=== PATIENT | female | born 1960 | race Caucasian/White ===

== ENCOUNTER 2021-02-13 08:25 | Inpatient (IN) | payer OTHER ==
[~2021-02-13] VITALS: Ht 160 cm; Wt 89.0 kg
--- NOTE | 2021-02-13 08:41 | NUR ---
PT IS IN ROOM #2B. DR DAUGHERTY EVALUATED THE PT.
[2021-02-13] MEDS ORDERED: NITROGLYCERIN 0.4 MG/TAB BOTTLE SL ONE ×2 (09:13→09:30)
[2021-02-13] MEDS ORDERED: ASPIRIN 81 MG TAB.CHEW ONE ×2 (09:13→09:15)
[2021-02-13 09:15] LABS: HEMATOCRIT 35.3 % (31.2-41.9); MEAN CORPUSCULAR HEMOGLOBIN 30.1 uug (24.7-32.8); MEAN CORPUSCULAR VOLUME 89.7 fL (75.5-95.3); PLATELET COUNT (AUTO) 315 K/uL (179-408)
[2021-02-13 09:34] LABS: CREATININE 0.8 mg/dL (0.6-1.3); POTASSIUM 3.9 mmol/L (3.5-5.1)
[2021-02-13 09:40] LABS: BILIRUBIN,TOTAL 0.2 mg/dL (0.2-1.0); TOTAL PROTEIN, SERUM 7.8 g/dL (6.4-8.2)
[2021-02-13] MEDS ORDERED: NITROGLYCERIN OINT 1 GM PACKET TP ONE ×2 (09:45→10:25)
[2021-02-13] MEDS ORDERED: ASPIRIN 81 MG TAB.CHEW PO ONE (09:45)
[2021-02-13] MEDS ORDERED: ENOXAPARIN SODIUM 40 MG/0.4 ML DISP.SYRIN SQ SCH (13:00)
[2021-02-13] MEDS ORDERED: ACETAMINOPHEN 325 MG TABLET PO PRN (13:00)
[2021-02-13] MEDS ORDERED: Z GUARD REMEDY PASTE 57 GM TUBE TOP PRN (13:00)
[2021-02-13] MEDS ORDERED: NITROGLYCERIN 0.4 MG/TAB BOTTLE SL PRN (13:00)
[2021-02-13] MEDS ORDERED: MAGNESIUM HYDROXIDE 30 ML LIQUID UDC PO PRN (13:00)
[2021-02-13] MEDS ORDERED: ONDANSETRON 4 MG/2 ML VIAL IV PRN (13:00)
--- NOTE | 2021-02-13 16:50 | NUR ---
ADMITTED VIA W/C, ACCOMPANIED BY NADEEN MCCOY RN. ORIENTED TO SURROUNDINGS. DENIES CHEST PAIN, SOB OR ANXIETY AT THIS TIME.
[2021-02-13 16:59] VITALS: BP 144/74
[2021-02-13] MEDS ORDERED: LORAZEPAM 2 MG/1 ML VIAL IM ONE (17:00)
--- NOTE | 2021-02-13 17:47 | NUR ---
REPORT WAS GIVEN TO OUTDOOR EDUCATION TEACHER. PT WAS TRANSFERED TO ROOM #306.
[2021-02-13 20:05] VITALS: BP 128/74
[2021-02-14 04:05] VITALS: BP 137/77
[2021-02-14 07:01] LABS: CREATININE 0.8 mg/dL (0.6-1.3); MAGNESIUM 2.3 mg/dL (1.8-2.4); PHOSPHOROUS 3.5 mg/dL (2.5-4.9); POTASSIUM 3.9 mmol/L (3.5-5.1)
[2021-02-14 07:07] LABS: HEMATOCRIT 34.1 % (31.2-41.9); MEAN CORPUSCULAR HEMOGLOBIN 30.2 uug (24.7-32.8); PLATELET COUNT (AUTO) 289 K/uL (179-408)
[2021-02-14] MEDS: ASPIRIN 81 MG TAB.CHEW PO SCH (08:39)
[2021-02-14] MEDS: ENOXAPARIN SODIUM 40 MG/0.4 ML DISP.SYRIN SQ SCH (08:40)
--- NOTE | 2021-02-14 10:00 | NUR ---
SEEN BY DR. MADRIGAL. ARRANGING FOR CARDIAC CTA IN AM.
[2021-02-14] MEDS ORDERED: ASPI81TA31 PO (11:24)
[2021-02-14] MEDS ORDERED: METO-356 PO (11:24)
[2021-02-14] MEDS ORDERED: ATOR20TA PO (11:24)
[2021-02-14] MEDS: METOPROLOL SUCCINATE XL 25 MG TAB.SR.24H PO SCH (11:44)
[2021-02-14] MEDS: HYDROCODONE/APAP 5-325MG TABLET PO PRN (11:45)
[2021-02-14 12:00] VITALS: BP 139/61
--- NOTE | 2021-02-14 14:30 | NUR ---
SHOWERED. FEELS MUCH BETTER. AMBULATING AD EDUARDO. DAUGHTER AWARE OF CTA.
[2021-02-14 16:29] VITALS: BP 99/36
[2021-02-14 20:10] VITALS: BP 124/77
[2021-02-14] MEDS ORDERED: ATORVASTATIN 20 MG TABLET PO SCH (21:00)
[2021-02-15] VITALS: BP 131/74
[2021-02-15 04:10] VITALS: BP 121/69
--- NOTE | 2021-02-15 07:20 | NUR ---
Patient went to CT of the chest in [facility] up by private ambulance via gurney in stable condition.
[2021-02-15] MEDS: HYDROCODONE/APAP 5-325MG TABLET PO PRN (10:23)
[2021-02-15 10:30] VITALS: BP 131/74
[2021-02-15] MEDS ORDERED: PANTOPRAZOLE SODIUM 40 MG VIAL IV SCH (10:30)
--- NOTE | 2021-02-15 10:33 | NUR ---
Pt returned to unit/room 306 at 1015 via gurney from private ambulance. Assessment done and giving am meds that were due while pt was away.
[2021-02-15] MEDS: ASPIRIN 81 MG TAB.CHEW PO SCH (10:34)
[2021-02-15] MEDS: ENOXAPARIN SODIUM 40 MG/0.4 ML DISP.SYRIN SQ SCH (10:35)
[2021-02-15] MEDS: METOPROLOL SUCCINATE XL 25 MG TAB.SR.24H PO SCH (10:51)
[2021-02-15 16:00] VITALS: BP 121/62
--- NOTE | 2021-02-15 16:44 | NUR ---
Pt discharged via private vehicle with son, IV removed prior to discharge. Discharge instructions reviewed with pt.
== END 2021-02-15 16:20 | disposition home or self-care (01) | DRG 201 ==
LOC: ER 08:25 → TELE3 16:10
PROVIDERS: ADMIT Nurse Practitioner Acute Care; ATTEND Internal Medicine
DX: I47.1 Supraventricular tachycardia (principal); E66.9 Obesity, unspecified; R07.89 Other chest pain; Z68.34 Body mass index [BMI] 34.0-34.9, adult; Z20.822 Contact with and (suspected) exposure to COVID-19; I10 Essential (primary) hypertension; E78.00 Pure hypercholesterolemia, unspecified
CPT/HCPCS: 36415; 70030-TC; 71045; 83735; 84100; 85025; 85610; 93005; 93307; A4663; C9113; G0378; J1650; J7030

== ENCOUNTER 2021-07-02 13:48 | Emergency (ER) | payer OTHER ==
[~2021-07-02] VITALS: Ht 160 cm; Wt 88.5 kg
[~2021-07-02 13:48] MED LIST: ASPI81TA31 PO; ATOR20TA PO; METO-356 PO
[2021-07-02] MEDS ORDERED: DIPH25TA62 PO (14:41)
[2021-07-02] MEDS ORDERED: PRED20TA PO (14:41)
[2021-07-02] MEDS ORDERED: predniSONE 20 MG TABLET PO ONE (14:45)
[2021-07-02] MEDS ORDERED: diphenhydrAMINE 50 MG CAPSULE PO ONE (14:45)
[2021-07-02] MEDS ORDERED: diphenhydrAMINE 50 MG CAPSULE ONE (14:52)
[2021-07-02] MEDS ORDERED: predniSONE 20 MG TABLET ONE (14:52)
[2021-07-02 14:59] VITALS: BP 148/90
--- NOTE | 2021-07-02 14:59 | NUR ---
Patient discharged to home in stable condition. Written and verbal after care instructions given. Patient verbalizes understanding of instructions. Stressed follow up or return to ER for worsening s/s.
== END 2021-07-02 15:00 | disposition home or self-care (01) ==
LOC: ER 13:48
DX: L50.9 Urticaria, unspecified (principal); Z86.16 Personal history of COVID-19; E78.5 Hyperlipidemia, unspecified; E11.9 Type 2 diabetes mellitus without complications; I25.10 Atherosclerotic heart disease of native coronary artery without angina pectoris; E78.00 Pure hypercholesterolemia, unspecified; I10 Essential (primary) hypertension; Z79.899 Other long term (current) drug therapy; Z79.82 Long term (current) use of aspirin
CPT/HCPCS: 99283; J7512; Q0163; A4663